=== PATIENT | female | born 2000 | race Two or more races ===

== ENCOUNTER 2024-03-21 14:30 | Emergency (ER) | payer MEDICAID, OTHER ==
[~2024-03-21] VITALS: Ht 157.5 cm; Wt 81.5 kg
--- NOTE | 2024-03-21 14:50 | ED.PDOC ---
History of Present Illness HPI Comments 23-year-old female with no PMHx presents with a chief complaint of abdominal pain, flank pain, headache, nausea, dizziness, and urinary frequency. Patient states that she is roughly 4 months , , and has no [employer] doctor. Patient mentions that her pain is localized to her pelvic region, radiating to her right flank, describes as sharp, and rates her pain a 8/10. Patient mentions that she also has urinary frequency, but has no foul odor to the urine. Patient mentions that she does not have any vaginal bleeding or spotting. No other symptoms or modifying factors present at this time. 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 Family History Family History: Reviewed,noncontributory to illness Social History Smoker: Non-Smoker Alcohol: Denies ETOH Use Drugs: Denies Drug Use Lives In: Home Constitutional: denies: chills, diaphoresis, fatigue, fever, malaise, sweats, weakness, others EENTM: denies: blurred vision, double vision, ear bleeding, ear discharge, ear drainage, ear pain, ear ringing, eye pain, eye redness, hearing loss, mouth pain, mouth swelling, nasal discharge, nose bleeding, nose congestion, nose pain, photophobia, tearing, throat pain, throat swelling, voice changes, others Respiratory: denies: cough, hemoptysis, orthopnea, SOB at rest, shortness of breath, SOB with excertion, stridor, wheezing, others Cardiovascular: denies: chest pain, dizzy spells, diaphoresis, Dyspnea on exertion, edema, irregular heart beat, left arm pain, lightheadedness, palpitations, PND, syncope, others Gastrointestinal: reports: abdominal pain, nausea; denies: abdomen distended, blood streaked bowels, constipated, diarrhea, dysphagia, difficulty swallowing, hematemesis, melena, poor appetite, poor fluid intake, rectal bleeding, rectal pain, vomiting, others Genitourinary: reports: flank pain, frequency, ; denies: abnormal vagina bleeding, burning, dyspareunia, dysuria, hematuria, incontinence, pain, vagina discharge, urgency, others Neurological: reports: dizziness, headache; denies: fainting, left sided numbness, left sided weakness, numbness, paresthesia, pre-existing deficit, right sided numbness, right sided weakness, seizure, speech problems, tingling, tremors, weakness, others Musculoskeletal: denies: back pain, gout, joint pain, joint swelling, muscle pain, muscle stiffness, neck pain, others Integumetry: denies: bruises, change in color, change in hair/nails, dryness, laceration, lesions, lumps, rash, wounds, others Allergic/Immunocompromised: denies: Difficulty Healing, Frequent Infections, Hives, Itching, others Hematologic/Lymphatic: denies: anemia, blood clots, easy bleeding, easy bruising, swollen glands, others Endocrine: denies: excessive hunger, excessive sweating, excessive thirst, excessive urination, flushing, intolerance to cold, intolerance to heat, unexplained weight gain, unexplained weight loss, others Psychiatric: denies: anxiety, bipolar disorder, depression, hopeless, panic disorder, schizophrenia, sleepless, suicidal, others All Other Systems: Reviewed and Negative Physical Exam General Appearance: Mild Distress HEENT: Normal ENT Inspection, Pharynx Normal, TMs Normal Neck: Full Range of Motion, Non-Tender, Normal, Normal Inspection Respiratory: Chest Non-Tender, Lungs Clear, No Accessory Muscle Use, No Respir atory Distress, Normal Breath Sounds Cardiovascular: No Edema, No JVD, No Murmur, No Gallop, Normal Peripheral Pulses, Regular Rate/Rhythm Breast Exam: Deferred Gastrointestinal: No Organomegaly, Non Tender, No Pulsatile Mass, Normal Bowel Sounds, Soft Genitalia: Deferred Pelvic: Deferred Rectal: Deferred Extremities: No calf tenderness, Normal capillary refill, Normal inspection, Normal range of motion, Non-tender, No pedal edema Musculoskeletal : Apperance: Normal Neurologic: Alert, dynamo tender II-XII nml as Tested, No Motor Deficits, Normal Affect, Normal Mood, No Sensory Deficits Cerebellar Function: Normal Reflexes: Normal Skin: Dry, Normal Color, Warm Lymphatic: No Adenopathy Was a procedure done? Was a procedure done?: No Differential Dx Considerations may include: Threatened , UTI in X-Ray, Labs, Meds, VS Vital Signs Date Time Temp Pulse Resp B/P (MAP) Pulse Ox O2 Delivery O2 Flow Rate FiO2 03/21/24 17:09 98.5 63 16 100/58 (72) 100 98.5 03/21/24 15:00 97.8 84 18 105/50 (68) 98 Lab Test 03/21/24 15:24 03/21/24 14:51 Range/Units Beta HCG, Quantitative 39268.0 H 1.5-4.2 mIU/mL Urine Color Light-orange Yellow Urine Clarity Ex.turbid Clear Urine pH 7.0 5.0-9.0 Urine Specific [place] 1.022 1.001-1.035 Urine Protein 1+ H Negative Urine Ketones Trace Negative Urine Blood 3+ H Negative /uL Urine Nitrite 2+ H Negative Urine Bilirubin Negative Negative Urine Urobilinogen 6 Negative mg/dL Urine Leukocyte Esterase 3+ Negative /uL Urine RBC 104 0 - 4 /hpf Urine Microscopic WBC 22 H 0-5 /HPF Urine Squamous Epithelial Cells Many <5 /hpf Urine Calcium Oxalate Crystals Many None Seen Urine Bacteria Few H None Seen /hpf Urine Mucus Few None Seen Urine Glucose Normal Normal mg/dL Urine Test Positive Negative Current Medications Medications (Trade) Dose Ordered Sig/Jillian Route Start Time Stop Time Status Last Admin Ondansetron HCl (Zofran Po) 4 mg ONCE ONCE PO 03/21/24 15:00 03/21/24 15:01 DC 03/21/24 18:11 OB Ultrasound Impression: 1. IUP single live fetus at 16 weeks 4 days AUA corresponding to an NADIA of 09/01/2024. 2. FHR: 163 Time of 1ST Reevaluation: 15:14 Reevaluation 1ST: Unchanged Patient Education/Counseling: Diagnosis, Treatment, Prognosis, Need For Follow Up Family Education/Counseling: Diagnosis, Treatment, Prognosis, Need For Follow Up Departure 1 Departure Time of Disposition: 18:41 Impression: Primary Impression: Abdominal pain in Qualified Codes: O26.899 - Other specified related conditions, unspecified trimester; R10.9 - Unspecified abdominal pain Additional Impression: UTI in Qualified Codes: O23.40 - Unspecified infection of urinary tract in , unspecified trimester Disposition: HOME / SELF CARE / HOMELESS Condition: Fair e-Prescriptions Nitrofurantoin Monohydrate Mac (Macrobid) 100 Mg Cap 100 MG PO BID for 5 Days, #10 CAP Prov: MELISA JOHN MD 03/21/24 Discharged With: Self Critical Care Note Critical Care Time?: No Stability Stability form required: No Heart Score Heart Score: Heart Score Response (Comments) Value History N/A 0 EKG N/A 0 Age N/A 0 Risk Factors N/A 0 Troponin N/A 0 Total 0 I personally scribed for MELISA JOHN MD ([email or web address]) on 03/21/24 at 14:50. Electronically submitted by Tavon Guerrero ([email or web address]). I personally scribed for MELISA JOHN MD ([email or web address]) on 03/21/24 at 16:24. Electronically submitted by Tavon Guerrero ([email or web address]). MELISA JOHN MD Mar 21, 2024 14:50
--- NOTE | 2024-03-21 16:02 | DVH ---
LIMITED OB ULTRASOUND > 14 WKS: HISTORY: pain TECHNIQUE: Multiple real-time grayscale images of the gravid uterus with duplex Doppler color flow an d M-mode spectral analysis. TRANSDUCER: Transabdominal FINDINGS: IUP single live fetus at 16 weeks 4 days based on composite averages of the BPD, head circumference, abdominal circumference and femur length Estimated weight 160.75 grams heart rate 163 beats per minute MVP: 2 cm Cervix 3 cm Transverse head on maternal left Presentation 1Grade posterior Placenta without previa or abruption. IMPRESSION: 1. IUP single live fetus at 16 weeks 4 days AUA corresponding to an NADIA of 09/01/2024. 2. FHR: 163
[2024-03-21 18:00] LABS: Urine Bacteria FEW /hpf (None Seen); Urine Blood 3+ /uL (Negative); Urine Clarity Ex.Turbid (Clear); Urine Color Light-Orange (Yellow); Urine Mucus FEW (None Seen); Urine Protein, UAD 1+ (Negative); Urine Specific Gravity 1.022 (1.001-1.035); Urine Squamous Epithelial Cell MANY /hpf (<5); Urine Urobilinogen 6 mg/dL (Negative); Urine WBC 22 /HPF (0-5)
[2024-03-21] MEDS: ONDANSETRON ODT 4 MG TAB PO ONE (18:11)
[2024-03-21] MEDS ORDERED: NITR-87 PO (18:16)
[2024-03-21 19:07] VITALS: BP 102/56; PULSE 69; RESP 18; TEMP 98.2; O2SAT 99
== END 2024-03-21 19:11 | disposition home or self-care (01) ==
LOC: ER 14:30
DX: O26.892 Other specified pregnancy related conditions, second trimester (principal); R10.9 Unspecified abdominal pain; R10.2 Pelvic and perineal pain; O26.41 Herpes gestationis, first trimester; N39.0 Urinary tract infection, site not specified; Z3A.16 16 weeks gestation of pregnancy
CPT/HCPCS: 36415; 76805; 81001; 81025; 84702; 99284; Q0162